=== PATIENT | female | born 1975 | race Hispanic/Latino ===

== ENCOUNTER 2018-03-13 03:56 | Emergency (ER) | payer SELFPAY ==
[2018-03-13] MEDS ORDERED: KETOROLAC 30 MG/ML INJ ONE (04:38)
[2018-03-13 05:16] LABS: Urine Blood NEGATIVE (NEG); Urine Glucose NEGATIVE (NEG); Urine Protein NEGATIVE (NEG); Urine Specific Gravity 1.015 (1.005-1.030); Urine pH 5.5 (5.0-7.0)
[2018-03-13 05:16] LABS: Urine Bacteria <20 /HPF (<20); Urine Culture Reflex Order NOT NEEDED; Urine RBC <5 /HPF (NONE SEEN)
--- NOTE | 2018-03-13 05:22 | ER ---
Nurse's Notes [facility] Name: Pily Langston Age: 42 yrs Sex: Female : 1975 Arrival Date: 03/13/2018 Time: 03:59 Bed 5 Private MD: Diagnosis: influenza like illnes Presentation: 03/13 04:06 Presenting complaint: Patient states: throat pain, headache, fever, back pain started ak1 last night. pt stated she had pneumonia and it felt like this, pt denies cough. pt c/o burning pain in throat. Transition of care: patient was not received from another setting of care. Onset of symptoms was March 12, 2018. Risk Assessment: Do you want to hurt yourself or someone else? Patient reports no desire to harm self or others. Initial Sepsis Screen: Does the patient meet any 2 criteria? No. Patient's initial sepsis screen is negative. Does the patient have a suspected source of infection? No. Patient's initial sepsis screen is negative. Care prior to arrival: motrin at 1700. 04:06 Method Of Arrival: Ambulatory ak1 04:06 Acuity: CHARLI 4 ak1 Triage Assessment: 04:08 General: Appears in no apparent distress. Behavior is calm, cooperative. Pain: ak1 Complains of pain in headache, throat pain. EENT: Reports pain when swallowing. Neuro: Level of Consciousness is awake, alert, obeys commands, Oriented to person, place, time, situation, Electrocardiograph Repairer are equal bilaterally Moves all extremities. Gait is steady, Speech is normal, Facial symmetry appears normal. Cardiovascular: No deficits noted. Respiratory: Denies cough. GI: No signs and/or symptoms were reported involving the gastrointestinal system. : No signs and/or symptoms were reported regarding the genitourinary system. Derm: Parent/caregiver reports the patient having fever last night. Musculoskeletal: Range of motion: intact in all extremities, Reports back pain. 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 - Social history:: Smoking status: Patient/guardian denies using tobacco. - Ebola Screening: : No symptoms or risks identified at this time. Screenin:10 Abuse screen: Denies threats or abuse. Denies injuries from another. Nutritional ak1 screening: No deficits noted. Tuberculosis screening: No symptoms or risk factors identified. Fall Risk None identified. Assessment: 04:10 Neuro: Level of Consciousness is awake, alert, obeys commands, Oriented to person, ak1 place, time, situation, Electrocardiograph Repairer are equal bilaterally Moves all extremities. Gait is steady, Speech is normal, Facial symmetry appears normal. 05:32 Reassessment: Patient and/or family updated on plan of care and expected duration. Pain ea level reassessed. Patient is alert, oriented x 3, equal unlabored respirations, skin warm/dry/pink. Discharge instruction given to patient, verbalized the understanding of instruction. Patient states feeling better. Vital Signs: 04:08 BP 153 / 79; Pulse 107; Resp 18; Temp 98.5(O); Pulse Ox 99% on R/A; Weight 90.72 kg ak1 (R); Height 5 ft. 6 in. (167.64 cm) (R); Pain 6/10; 04:34 BP 132 / 76; Pulse 109; Resp 18; Pulse Ox 99% on R/A; ak1 05:21 BP 127 / 58; Pulse 90; Resp 18; Pulse Ox 99% on R/A; ea 04:08 Body Mass Index 32.28 (90.72 kg, 167.64 cm) ak1 ED Course: 03:59 Patient arrived in ED. am2 04:05 Renetta Cunha, RN is Primary Nurse. ak1 04:07 Triage completed. ak1 04:08 Arm band placed on Patient placed in an exam room, on a stretcher, Patient notified of ak1 wait time. 04:10 Patient has correct armband on for positive identification. Bed in low position. Call ak1 light in reach. Side rails up X 1. Adult w/ patient. Pulse ox on. NIBP on. 04:13 Jaguar Ivy MD is Attending Physician. gs 04:35 Placed in gown. ak1 04:38 Urine Microscopic Only Sent. ds4 04:46 XRAY Chest Pa And Lat (2 Views) In Process Unspecified. EDMS 04:47 Patient moved to radiology via wheelchair. kw 04:47 X-ray completed. Patient tolerated procedure well. kw 04:[address] via wheelchair. kw 04:59 CT Head Brain wo Cont In Process Unspecified. EDMS 05:32 CT completed. Patient tolerated procedure well. Patient moved back from CT. eh 05:32 No provider procedures requiring assistance completed. Patient did not have IV access ea during this emergency room visit. Administered Medications: 04:39 Drug: TORadol 30 mg Route: IM; Site: right gluteus; ak1 05:22 Follow up: Response: Pain is decreased ea Outcome: 05:20 Discharge ordered by . gs 05:33 Discharged to home ambulatory, with family. ea 05:33 Condition: improved 05:33 Discharge instructions given to patient, Instructed on discharge instructions, follow up and referral plans. Demonstrated understanding of instructions, follow-up care. 05:33 Patient left the ED. ea Signatures: Dispatcher [employer] EDMS Neal Hooper Kimberlee kw Swanson, Donovan ds4 Renetta Cunha RN RN ak1 Moreno, Amanda am2 Antunez, Elena, RN RN ea Starr, Gregory, MD MD gs
--- NOTE | 2018-03-13 05:22 | EDPHYS ---
Physician Documentation [facility] Name: Pily Langston Age: 42 yrs Sex: Female : 1975 Arrival Date: 03/13/2018 Time: 03:59 Bed 5 Private MD: ED Physician Jaguar Ivy HPI: 03/13 05:18 This 42 yrs old Female presents to ER via Ambulatory with complaints of Fever, gs Back Pain, Headache. 05:18 Onset: The symptoms/episode began/occurred 3 day(s) ago. Modifying factors: gs Interventions used to treat fever include home remedies. Associated signs and symptoms: Pertinent positives: arthralgias, backache, cough, headache. Severity of symptoms: At their worst the symptoms were moderate in the emergency department the symptoms are unchanged. The patient has experienced similar episodes in the past, a few times. 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 - Social history:: Smoking status: Patient/guardian denies using tobacco. - Ebola Screening: : No symptoms or risks identified at this time. ROS: 05:18 All other systems are negative. gs Exam: 05:18 Head/Face: Normocephalic, atraumatic. Eyes: Pupils equal round and reactive to light, gs extra-ocular motions intact. Lids and lashes normal. Conjunctiva and sclera are non-icteric and not injected. Cornea within normal limits. Periorbital areas with no swelling, redness, or edema. ENT: Nares patent. No nasal discharge, no septal abnormalities noted. Tympanic membranes are normal and external auditory canals are clear. Oropharynx with no redness, swelling, or masses, exudates, or evidence of obstruction, uvula midline. Mucous membranes moist. Neck: Trachea midline, no thyromegaly or masses palpated, and no cervical lymphadenopathy. Supple, full range of motion without nuchal rigidity, or vertebral point tenderness. No Meningismus. Chest/axilla: Normal chest wall appearance and motion. Nontender with no deformity. No lesions are appreciated. Cardiovascular: Regular rate and rhythm with a normal S1 and S2. No gallops, murmurs, or rubs. Normal PMI, no JVD. No pulse deficits. Respiratory: Lungs have equal breath sounds bilaterally, clear to auscultation and percussion. No rales, rhonchi or wheezes noted. No increased work of breathing, no retractions or nasal flaring. Abdomen/GI: Soft, non-tender, with normal bowel sounds. No distension or tympany. No guarding or rebound. No evidence of tenderness throughout. Back: No spinal tenderness. No costovertebral tenderness. Full range of motion. Skin: Warm, dry with normal turgor. Normal color with no rashes, no lesions, and no evidence of cellulitis. MS/ Extremity: Pulses equal, no cyanosis. Neurovascular intact. Full, normal range of motion. Neuro: Awake and alert, GCS 15, oriented to person, place, time, and situation. Cranial nerves II-XII grossly intact. Motor strength 5/5 in all extremities. Sensory grossly intact. Cerebellar exam normal. Normal gait. 05:18 Constitutional: The patient appears alert, awake. Vital Signs: 04:08 BP 153 / 79; Pulse 107; Resp 18; Temp 98.5(O); Pulse Ox 99% on R/A; Weight 90.72 kg ak1 (R); Height 5 ft. 6 in. (167.64 cm) (R); Pain 6/10; 04:34 BP 132 / 76; Pulse 109; Resp 18; Pulse Ox 99% on R/A; ak1 05:21 BP 127 / 58; Pulse 90; Resp 18; Pulse Ox 99% on R/A; ea 04:08 Body Mass Index 32.28 (90.72 kg, 167.64 cm) ak1 MDM: 04:24 Patient medically screened. gs 05:18 Differential diagnosis: viral Infection, URI, bronchitis, UTI. Data reviewed: vital gs signs, nurses notes. Response to treatment: the patient's symptoms have markedly improved after treatment, and as a result, I will discharge patient. 05:21 Counseling: I had a detailed discussion with the patient and/or guardian regarding: the gs presence of at least one elevated blood pressure reading (>120/80) during this emergency department visit. Special discussion: I have referred the patient to see his PCP for further evaluation of high blood pressure. 03/13 04:26 Order name: Urine Microscopic Only; Complete Time: 05:17 03/13 04:39 Order name: Urine Dipstick--Ancillary (enter results); Complete Time: 05:17 ds4 03/13 04:26 Order name: XRAY Chest Pa And Lat (2 Views) 03/13 04:26 Order name: CT Head Brain wo Cont 03/13 04:39 Order name: Urine --Ancillary (enter results); Complete Time: 05:17 ds4 03/13 04:26 Order name: Urine Test (obtain specimen); Complete Time: 04:33 03/13 04:26 Order name: Urine Dipstick-Ancillary (obtain specimen); Complete Time: 04:33 Administered Medications: 04:39 Drug: TORadol 30 mg Route: IM; Site: right gluteus; ak1 05:22 Follow up: Response: Pain is decreased ea Disposition: 03/13/18 05:20 Discharged to Home. Impression: influenza like illnes. - Condition is Stable. - Discharge Instructions: Fever, Adult, [id number], Managing Your Hypertension. - Medication Reconciliation Form, Thank You Letter, Antibiotic Education, Prescription Opioid Use form. - Follow up: Private Physician; When: 2 - 3 days; Reason: Re-evaluation by your physician. Signatures: Dispatcher [employer] Renetta Woods RN RN ak1 Dee Bower RN RN ea Starr, Gregory, MD MD Corrections: (The following items were deleted from the chart) 05:33 05:20 03/13/2018 05:20 Discharged to Home. Impression: influenza like illnes. Condition ea is Stable. Forms are Medication Reconciliation Form, Thank You Letter, Antibiotic Education, Prescription Opioid Use. Follow up: Private Physician; When: 2 - 3 days; Reason: Re-evaluation by your physician.
--- NOTE | 2018-03-13 08:49 | RAD REPORT ---
EXAM DESCRIPTION: CT - Head Brain Wo Cont - 03/13/2018 5:42 am CLINICAL HISTORY: Headache COMPARISON: None. TECHNIQUE: Computed axial tomography of the head was obtained. IV contrast was not requested. All CT scans are performed using dose optimization technique as appropriate and may include automated exposure control or mA/KV adjustment according to patient size. FINDINGS: An intracranial bleed is not seen . The ventricles are normal in caliber. No extra-axial fluid collection is noted. Fluid within the sinuses/ mastoids is not seen. IMPRESSION: No acute intracranial abnormality is seen. If patient's symptoms persist MRI of the bra in would be recommended.
--- NOTE | 2018-03-13 09:15 | RAD REPORT ---
EXAM DESCRIPTION: Wendy Carroll (2 Views)03/13/2018 4:50 am CLINICAL HISTORY: Cough COMPARISON: 2017 FINDINGS: The lungs appear clear of acute infiltrate. The heart is normal size IMPRESSION: No acute abnormalities displayed
== END 2018-03-13 05:33 | disposition home or self-care (01) ==
LOC: ER 03:56
DX: B34.8 Other viral infections of unspecified site (principal)
CPT/HCPCS: 70450; 71046; 81003; 81015; 81025; 96372; 99284

== ENCOUNTER 2019-06-09 18:54 | Emergency (ER) | payer SELFPAY ==
[2019-06-09 19:53] LABS: Urine Bacteria 20-50 /HPF (<20); Urine Culture Reflex Order NOT NEEDED; Urine RBC <5 /HPF (NONE SEEN)
[2019-06-09 19:56] LABS: Basophils % 0.3 % (0-1.3); Hematocrit 38.8 % (36.0-45.0); MPV 10.1 fL (7.6-11.3); RBC Red Blood Cell Count 4.45 M/uL (3.86-4.86)
--- NOTE | 2019-06-09 20:03 | RAD REPORT ---
EXAM DESCRIPTION: Wendy Carroll (2 Views)06/09/2019 7:43 pm CLINICAL HISTORY: Chest pain COMPARISON: 2018 FINDINGS: The lungs appear clear of acute infiltrate. The heart is normal size IMPRESSION: No acute abnormalities displayed
[2019-06-09 20:09] LABS: Albumin 3.6 g/dL (3.4-5.0); Bilirubin Direct 0.1 mg/dL (0-0.2); Bilirubin Total 0.4 mg/dL (0.2-1.0); Potassium 3.4 mmol/L (3.5-5.1); Protein, Total 7.4 g/dL (6.4-8.2)
[2019-06-09 20:25] LABS: Urine Blood NEGATIVE (NEG); Urine Glucose NEGATIVE (NEG); Urine Protein NEGATIVE (NEG); Urine Specific Gravity >1.030 (1.005-1.030); Urine pH 5.5 (5.0-7.0)
--- NOTE | 2019-06-09 20:50 | RAD REPORT ---
EXAM DESCRIPTION: CT - Abdomen Pelvis W Contrast - 06/09/2019 8:25 pm CLINICAL HISTORY: Abdominal pain COMPARISON: none. TECHNIQUE: Computed axial tomography of the abdomen pelvis was obtained. 100 cc Isovue-300 was admin istered intravenously. Oral contrast was not requested which limits evaluation of bowel. All CT scans are performed using dose optimization technique as appropriate and may include automated exposure control or mA/KV adjustment according to patient size. FINDINGS: The liver, spleen, pancreas, adrenal and kidneys appear unremarkable. There is no evidence of diverticulitis. Normal appendix 3.1 centimeter right ovarian cyst with small amount of free fluid IMPRESSION: 3.1 centimeter right ovarian cyst with small amount of free fluid
--- NOTE | 2019-06-09 21:27 | EDPHYS ---
Physician Documentation [facility] Name: Pily Langston Age: 44 yrs Sex: Female : 1975 Arrival Date: 06/09/2019 Time: 18:55 Bed 19 Private MD: ED Physician Augie Beaver HPI: 06/09 19:28 This 44 yrs old Female presents to ER via Ambulatory with complaints of Fever, rn Abdominal Pain, Back Pain. 19:28 The patient reports fever, not measured (subjective). Onset: The symptoms/episode rn began/occurred this morning. Modifying factors: there are no obvious modifying factors. Severity of symptoms: At their worst the symptoms were mild in the emergency department the symptoms are unchanged. The patient has experienced a previous episode. Reports fever, mid to upper back pain on right side, also having upper abd pain, + nausea, no diarrhea. NO sore throat or runny nose. NO urinary symptoms. . 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 - Coronavirus screen:: The patient has NOT traveled to [place] in the past 14 days. - Social history:: Smoking status: Patient denies any tobacco usage or history of. - Family history:: not pertinent. - Ebola Screening: : No symptoms or risks identified at this time. - Hospitalizations: : No recent hospitalization is reported. 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 Exam: 19:28 Constitutional: This is a well developed, well nourished patient who is awake, alert, rn and in no acute distress. Ambulatory to room from bathroom without assistance Head/Face: Normocephalic, atraumatic. Eyes: Pupils equal round and reactive to light, extra-ocular motions intact. Lids and lashes normal. Conjunctiva and sclera are non-icteric and not injected. Cornea within normal limits. Periorbital areas with no swelling, redness, or edema. ENT: MMM, no stridor Neck: Supple, full range of motion without nuchal rigidity, or vertebral point tenderness. No Meningismus. Cardiovascular: Regular rate and rhythm. No pulse deficits. Respiratory: Lungs have equal breath sounds bilaterally, clear to auscultation. No increased work of breathing, no retractions or nasal flaring. Abdomen/GI: soft, + epigastric and LUQ tenderness, no rebound Back: No spinal tenderness. No costovertebral tenderness. Full range of motion. Skin: Warm, dry MS/ Extremity: Pulses equal, no cyanosis. Neurovascular intact. Full, normal range of motion. Equal circumference. Neuro: Awake and alert, GCS 15, oriented to person, place, time, and situation. Cranial nerves II-XII grossly intact. Motor strength 5/5 in all extremities. Sensory grossly intact. Cerebellar exam normal. Normal gait. Vital Signs: 19:05 BP 131 / 79; Pulse 93; Resp 11; Temp 98.6; Pulse Ox 99% on R/A; Weight 97.52 kg; Height ea 5 ft. 6 in. (167.64 cm); Pain 7/10; 20:30 BP 121 / 70; Pulse 80; Resp 18; Pulse Ox 100% on R/A; wh 21:30 BP 114 / 95; Pulse 88; Resp 18; Pulse Ox 99% on R/A; wh 19:05 Body Mass Index 34.70 (97.52 kg, 167.64 cm) ea MDM: 19:11 Patient medically screened. rn 21:24 Differential diagnosis: viral Infection, bacterial infection, URI, pneumonia UTI, rn gastroenteritis. Data reviewed: vital signs, nurses notes, lab test result(s), radiologic studies, CT scan, plain films, and as a result, I will discharge patient. Counseling: I had a detailed discussion with the patient and/or guardian regarding: the historical points, exam findings, and any diagnostic results supporting the discharge/admit diagnosis, lab results, radiology results, the need for outpatient follow up, to return to the emergency department if symptoms worsen or persist or if there are any questions or concerns that arise at home. Special discussion: Based on the patient's Hx, exam, and Dx evaluation, there is no indication for emergent surgery or inpatient Tx. It is understood by the patient/guardian that if the Sx's persist or worsen they need to return immediately for re-evaluation. I discussed with the patient/guardian in detail that at this point there is no indication for admission to the hospital. It is understood, however, that if the symptoms persist or worsen the patient needs to return immediately for re-evaluation. ED course: No acute findings other than ovarian cyst, no sign of rupture, neg cxr, no bowel infection, neg UA, neg flu. Will dc home with fever and viral syndrome. . 06/09 19:10 Order name: Urine Culture [facility] 06/09 19:10 Order name: Urine Microscopic Only; Complete Time: 20:43 [facility] 06/09 19:26 Order name: Flu; Complete Time: 20:43 06/09 19:26 Order name: Strep; Complete Time: 20:43 06/09 19:26 Order name: Basic Metabolic Panel; Complete Time: 20:43 06/09 19:26 Order name: CBC with Diff; Complete Time: 20:43 06/09 19:26 Order name: XRAY Chest Pa And Lat (2 Views); Complete Time: 20:43 06/09 19:26 Order name: Creatinine for Radiology; Complete Time: 20:43 06/09 19:26 Order name: Hepatic Function; Complete Time: 20:43 06/09 19:26 Order name: Lipase; Complete Time: 20:43 06/09 19:26 Order name: CT Abd/Pelvis - IV Contrast Only; Complete Time: 20:56 06/09 19:30 Order name: Urine Dipstick--Ancillary (enter results); Complete Time: 20:43 [facility] 06/09 19:30 Order name: Urine --Ancillary (enter results); Complete Time: 20:43 [facility] 06/09 20:07 Order name: Throat Culture [facility] 06/09 19:10 Order name: Urine Test (obtain specimen); Complete Time: 19:26 [facility] 06/09 19:10 Order name: Urine Dipstick-Ancillary (obtain specimen); Complete Time: snw 06/09 19: Order name: IV Saline Lock; Complete Time: 19:37 rn 06/09 19: Order name: Labs collected and sent; Complete Time: 19:37 rn Administered Medications: No medications were administered Disposition: 06/09/19 21:26 Discharged to Home. Impression: Fever, unspecified, Unspecified abdominal pain. - Condition is Stable. - Discharge Instructions: Abdominal Pain, Adult, Fever, Adult. - Medication Reconciliation Form, Thank You Letter, Antibiotic Education, Prescription Opioid Use form. - Follow up: Private Physician; When: As needed; Reason: Recheck today's complaints, Re-evaluation by your physician. - Problem is new. - Symptoms have improved. Signatures: Dispatcher [employer] EDMS Sayra Huston, BEHAVIOR SUPPORT SPECIALIST-C BEHAVIOR SUPPORT SPECIALIST-Csnw Augie Beaver MD MD rn Antunez, Elena, RN RN ea Habalo, Winsy wh Corrections: (The following items were deleted from the chart) 21:44 21:06/09/2019 21:26 Discharged to Home. Impression: Fever, unspecified; Unspecified wh abdominal pain. Condition is Stable. Forms are Medication Reconciliation Form, Thank You Letter, Antibiotic Education, Prescription Opioid Use. Follow up: Private Physician; When: As needed; Reason: Recheck today's complaints, Re-evaluation by your physician. Problem is new. Symptoms have improved. rn
--- NOTE | 2019-06-09 21:27 | ER ---
Nurse's Notes [facility] Name: Pily Langston Age: 44 yrs Sex: Female : 1975 Arrival Date: 06/09/2019 Time: 18:55 Bed 19 Private MD: Diagnosis: Fever, unspecified;Unspecified abdominal pain Presentation: 06/09 19:02 Presenting complaint: Patient states: Reports she has been having back pain, stomach ea pain, fever reports she is feeling the same as last year when she had pneumonia. Transition of care: patient was not received from another setting of care. Onset of symptoms was June 09, 2019. Risk Assessment: Do you want to hurt yourself or someone else? Patient reports no desire to harm self or others. Initial Sepsis Screen: Does the patient meet any 2 criteria? No. Patient's initial sepsis screen is negative. Does the patient have a suspected source of infection? No. Patient's initial sepsis screen is negative. Care prior to arrival: None. 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 - Coronavirus screen:: The patient has NOT traveled to [place] in the past 14 days. - Social history:: Smoking status: Patient denies any tobacco usage or history of. - Family history:: not pertinent. - Ebola Screening: : No symptoms or risks identified at this time. - Hospitalizations: : No recent hospitalization is reported. Screenin:06 Abuse screen: Denies threats or abuse. Nutritional screening: No deficits noted. ea Tuberculosis screening: No symptoms or risk factors identified. Fall Risk None identified. Assessment: 19:20 General: Appears in no apparent distress. Behavior is calm, cooperative, appropriate wh for age. Pain: Complains of pain in abdomen diffusely Pain does not radiate. Pain currently is 4 out of 10 on a pain scale. Pain began 2-3 days ago. Neuro: Level of Consciousness is awake, alert, obeys commands, Oriented to person, place, time, situation, Appropriate for age. Cardiovascular: Heart tones S1 S2. Respiratory: Airway is patent Respiratory effort is even, unlabored, Respiratory pattern is regular, symmetrical, Breath sounds are clear bilaterally. GI: Abdomen is flat, non-distended, Bowel sounds present X 4 quads. Abd is soft and non tender X 4 quads. GI: Reports lower abdominal pain, upper abdominal pain. : No signs and/or symptoms were reported regarding the genitourinary system. EENT: No signs and/or symptoms were reported regarding the EENT system. Derm: Skin is intact, is healthy with good turgor, Skin is pink, warm \T\ dry. normal. Musculoskeletal: Circulation, motion, and sensation intact. 20:20 Reassessment: Patient appears in no apparent distress at this time. No changes from previously documented assessment. Patient and/or family updated on plan of care and expected duration. Pain level reassessed. Patient is alert, oriented x 3, equal unlabored respirations, skin warm/dry/pink. 21:30 Reassessment: Patient appears in no apparent distress at this time. No changes from previously documented assessment. Patient and/or family updated on plan of care and expected duration. Pain level reassessed. Patient is alert, oriented x 3, equal unlabored respirations, skin warm/dry/pink. Vital Signs: 19:05 BP 131 / 79; Pulse 93; Resp 11; Temp 98.6; Pulse Ox 99% on R/A; Weight 97.52 kg; Height ea 5 ft. 6 in. (167.64 cm); Pain 7/10; 20:30 BP 121 / 70; Pulse 80; Resp 18; Pulse Ox 100% on R/A; wh 21:30 BP 114 / 95; Pulse 88; Resp 18; Pulse Ox 99% on R/A; wh 19:05 Body Mass Index 34.70 (97.52 kg, 167.64 cm) ED Course: 18:55 Patient arrived in ED. as 19:05 Triage completed. ea 19:11 Augie Beaver MD is Attending Physician. rn 19:12 Mariah Armendariz is Primary Nurse. 19:30 Inserted saline lock: 20 gauge in right antecubital area, using aseptic technique. Blood collected. By Pam PADILLA. 19:30 Arm band placed on right wrist. 19:30 Patient has correct armband on for positive identification. Bed in low position. Call light in reach. Side rails up X 1. Pulse ox on. NIBP on. 19:41 XRAY Chest Pa And Lat (2 Views) In Process Unspecified. EDMS 20:26 CT Abd/Pelvis - IV Contrast Only In Process Unspecified. EDMS 21:39 IV discontinued, intact, bleeding controlled, No redness/swelling at site. 21:40 No provider procedures requiring assistance completed. Administered Medications: No medications were administered Outcome: 21:26 Discharge ordered by . rn 21:38 Discharged to home ambulatory, with family. 21:38 Condition: stable 21:38 Discharge instructions given to patient, family, Instructed on discharge instructions, follow up and referral plans. POC Demonstrated understanding of instructions, follow-up care, medications, POC 21:44 Patient left the ED. Addendum: 06/13/2019 18:41 Addendum: Culture Results: Positive urine culture. Patient was not prescribed i w antibiotics at discharge. Report given to UBALDO for further evaluation and then to carnival worker for follow up with patient. Phone call Attempt #1 pt did not answer, unable to leave . Signatures: Dispatcher [employer] Sindhu Moore Irene, RN RN iw Nieto, Roman, MD MD rn Antunez, Elena, RN RN ea Habalo, Winsy
[2019-06-09 21:52] VITALS: TEMP 98.6
[2019-06-09 21:55] VITALS: BP 114/95; O2SAT 99
== END 2019-06-09 21:44 | disposition home or self-care (01) ==
LOC: ER 18:54
DX: R10.9 Unspecified abdominal pain (principal); E03.9 Hypothyroidism, unspecified
CPT/HCPCS: 36415; 71046; 74177; 80048; 80076; 81003; 81015; 81025; 83690; 85025; 87070; 87077; 87081; 87086; 87088; 87186; 87804; 99284; Q9967

== ENCOUNTER 2023-01-14 00:02 | Emergency (ER) | payer SELFPAY ==
[2023-01-14] MEDS ORDERED: ONDANSETRON 4 MG/2 ML VIAL ONE (00:45)
[2023-01-14] MEDS ORDERED: NA CHLORIDE 0.9% 1,000 ML ONE (00:45)
[2023-01-14] MEDS ORDERED: KETOROLAC 30 MG/ML INJ ONE (00:45)
[2023-01-14 00:54] LABS: Absolute Lymphocytes (CBC) 0.5 K/uL (0.7-4.9); Hematocrit 35.9 % (36.0-45.0); Lymphocytes % 6.8 % (15.3-44.8); MCV 89.3 fL (80-100); Platelets 134 thou/uL (152-406); RBC Red Blood Cell Count 4.02 M/uL (3.86-4.86)
[2023-01-14 01:13] LABS: Albumin 3.4 g/dL (3.4-5.0); Bilirubin Total 0.5 mg/dL (0.2-1.0); Potassium 3.8 mEq/L (3.5-5.1); Protein, Total 6.8 g/dL (6.4-8.2)
[2023-01-14 01:30] LABS: Blood Morphology Comment NOT SEEN (NOT SEEN); Platelet Estimate ADEQ
[2023-01-14 02:36] LABS: Specific Gravity 1.007 (1.005-1.030); Urine Bilirubin NEGATIVE (Negative); Urine Blood Negative (Negative); Urine Clarity Clear (Clear); Urine Color Colorless (Yellow); Urine Glucose NEGATIVE (Negative); Urine Protein NEGATIVE (Negative); Urine Urobilinogen Normal (Normal)
--- NOTE | 2023-01-14 02:46 | ER ---
Nurse's Notes [facility] Name: Pily Langston Age: 47 yrs Sex: Female : 1975 Arrival Date: 01/14/2023 Time: 00:02 Bed 5 Private MD: Diagnosis: enteritis Presentation: 01/14 00:10 Chief complaint: Patient states: mid abdominal pain radiating to right abdomen with lg3 indigestion and nausea since yesterday morning. Coronavirus screen: Client denies travel out of the [place] in the last 14 days. At this time, the client does not indicate any symptoms associated with coronavirus-19. Ebola Screen: No symptoms or risks identified at this time. Initial Sepsis Screen: Does the patient meet any 2 criteria? No. Patient's initial sepsis screen is negative. Does the patient have a suspected source of infection? No. Patient's initial sepsis screen is negative. Risk Assessment: Do you want to hurt yourself or someone else? Patient reports no desire to harm self or others. Onset of symptoms was January 12, 2023. 00:10 Method Of Arrival: Ambulatory lg3 00:10 Acuity: CHARLI 3 lg3 Triage Assessment: 00:13 General: Appears in no apparent distress. uncomfortable, Behavior is calm, cooperative. lg3 Pain: Complains of pain in epigastric area, right upper quadrant and right lower quadrant. EENT: No deficits noted. No signs and/or symptoms were reported regarding the EENT system. Neuro: No deficits noted. Chan Agitation-Sedation Scale (RASS): 0 - Alert and Calm Level of Consciousness is awake, alert, obeys commands, Oriented to person, place, time, situation. Cardiovascular: No deficits noted. Denies chest pain, shortness of breath, Capillary refill < 3 seconds Clubbing of nail beds is absent JVD is absent Patient's skin is warm and dry. Respiratory: No deficits noted. Airway is patent Respiratory effort is even, unlabored, Respiratory pattern is regular, symmetrical. GI: Abdomen is round non-distended, Abd is soft X 4 quads Abdomen is tender to palpation in right upper quadrant and right lower quadrant Reports lower abdominal pain, upper abdominal pain, cramping, epigastric pain, indigestion, nausea. : No deficits noted. No signs and/or symptoms were reported regarding the genitourinary system. Derm: No deficits noted. No signs and/or symptoms reported regarding the dermatologic system. Skin is intact, is healthy with good turgor, Skin is dry, Skin is normal, Skin temperature is warm. Musculoskeletal: No deficits noted. No signs and/or symptoms reported regarding the musculoskeletal system. Circulation, motion, and sensation intact. Range of motion: intact in all extremities. DIRECTOR OF CLOUD SERVICES: 00:13 LMP N/A - Hysterectomy, Not lg3 Historical: - Allergies: 00:13 No Known Allergies; lg3 - PMHx: 00:13 Hypothyroidism; lg3 - PSHx: 00:13 Total abdominal hysterectomy; lg3 - Immunization history:: Adult Immunizations up to date. - Social history:: Smoking status: Patient denies any tobacco usage or history of. Patient/guardian denies using alcohol, street drugs. Screenin:43 Abuse screen: Denies threats or abuse. Denies injuries from another. Nutritional ha1 screening: No deficits noted. 03:02 [facility] ED Fall Risk Assessment (Adult) History of falling in the last 3 months, jb4 including since admission. Tuberculosis screening: No symptoms or risk factors identified. Assessment: 00:15 General: Appears uncomfortable, Behavior is calm, cooperative. Pain: Complains of pain ha1 in abdomen and right upper quadrant Pain does not radiate. Pain currently is 9 out of 10 on a pain scale. Quality of pain is described as crampy, pressure, Pain began 1 day ago. Neuro: Level of Consciousness is awake, alert, obeys commands, Oriented to person, place, time, situation. Cardiovascular: Capillary refill < 3 seconds Patient's skin is warm and dry. Respiratory: Airway is patent Respiratory effort is even, unlabored, Respiratory pattern is regular, symmetrical. GI: Abdomen is round non-distended, Reports upper abdominal pain, nausea. Derm: Skin is pink, warm \T\ dry. Musculoskeletal: Circulation, motion, and sensation intact. Range of motion: intact in all extremities. 01:40 Reassessment: Patient appears in no apparent distress at this time. Patient and/or jb4 family updated on plan of care and expected duration. Pain level reassessed. Patient is alert, oriented x 3, equal unlabored respirations, skin warm/dry/pink. 03:02 Reassessment: Patient appears in no apparent distress at this time. Patient and/or jb4 family updated on plan of care and expected duration. Pain level reassessed. Patient is alert, oriented x 3, equal unlabored respirations, skin warm/dry/pink. Vital Signs: 00:10 BP 126 / 80; Pulse 114; Resp 17 S; Temp 98.7(O); Pulse Ox 100% on R/A; Weight 70.76 kg lg3 (R); Height 5 ft. 3 in. (R); Pain 9/10; 00:42 BP 130 / 82; Pulse 95; Resp 18 S; Pulse Ox 100% on R/A; ha1 01:40 BP 105 / 55; Pulse 101; Resp 16; Pulse Ox 95% on R/A; jb4 00:10 Body Mass Index 27.63 (70.76 kg, 160.02 cm) lg3 00:10 Pain Scale: Adult lg3 ED Course: 00:07 Patient arrived in ED. jj6 00:07 [facility] Sandoval [facility]C [facility] kb 00:07 Louie Mora MD is Attending Physician. kb 00:13 Triage completed. lg3 00:13 Arm band placed on right wrist. lg3 00:35 Initial lab(s) drawn, by me, sent to lab. Inserted saline lock: 18 gauge in right jb4 antecubital area, using aseptic technique. Blood collected. 01:39 CT Abd/Pelvis - IV Contrast Only In Process Unspecified. EDMS 01:39 Burak Galo, RN is Primary Nurse. jb4 03:02 Patient has correct armband on for positive identification. Bed in low position. Call jb4 light in reach. Side rails up X 1. Client placed on continuous cardiac and pulse oximetry monitoring. NIBP monitoring applied. 03:02 No provider procedures requiring assistance completed. IV discontinued, intact, jb4 bleeding controlled, No redness/swelling at site. Pressure dressing applied. Administered Medications: 00:50 Drug: NS 0.9% IV 1000 ml IV at 1 bolus Per protocol; 1000 mL bolus Route: IV; Rate: 1 jb4 bolus; Site: right antecubital; 00:50 Drug: TORadol - Ketorolac IVP 15 mg IVP once Route: IVP; Site: right antecubital; jb4 00:50 Drug: Ondansetron IVP 4 mg IVP once; over 2 minutes Route: IVP; Site: right antecubital;jb4 Outcome: 02:46 Discharge ordered by MD. cobb 03:02 Discharged to home ambulatory, with family, jb4 03:02 Condition: stable 03:02 Discharge instructions given to patient, Instructed on discharge instructions, follow up and referral plans. medication usage, Demonstrated understanding of instructions, follow-up care, medications, Prescriptions given X 2, 03:04 Patient left the ED. jb4 Signatures: Dispatcher [employer] EDMS Laurie Sandoval, FINANCE BROKER-C FINANCE BROKER-Burak Tipton, RN RN jb4 Sugar Romo, RN RN lg3 Naina Dhillon jj6 Lucinda Mota, RN RN ha1
--- NOTE | 2023-01-14 02:46 | EDPHYS ---
Physician Documentation [facility] Name: Pily Langston Age: 47 yrs Sex: Female : 1975 Arrival Date: 01/14/2023 Time: 00:02 Bed 5 Private MD: ED Physician Louie Mora HPI: 01/14 01:15 This 47 yrs old Female presents to ER via Ambulatory with complaints of kb Abdominal Pain. 01:15 The patient presents with abdominal pain in the upper abdomen. Onset: The kb symptoms/episode began/occurred yesterday. The symptoms do not radiate. Associated signs and symptoms: Pertinent positives: nausea, chills. The symptoms are described as constant. Modifying factors: The symptoms are alleviated by nothing, the symptoms are aggravated by nothing. Severity of pain: At its worst the pain was mild moderate in the emergency department the pain is unchanged. The patient has not experienced similar symptoms in the past. The patient has not recently seen a physician. Pt reports abd pain, nausea and chills that started yesterday. Denies vomiting, diarrhea. 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 - Social history:: Smoking status: Patient denies any tobacco usage or history of. Patient/guardian denies using alcohol, street drugs. ROS: 01:15 Respiratory: Negative for shortness of breath, cough, wheezing, and pleuritic chest kb pain, 01:15 Constitutional: Positive for chills, 01:15 Abdomen/GI: Positive for abdominal pain, nausea, 01:15 All other systems are negative, Exam: 01:17 Constitutional: This is a well developed, well nourished patient who is awake, alert, kb and in no acute distress. Head/Face: Normocephalic, atraumatic. ENT: Moist Mucous membranes Cardiovascular: Regular rate Respiratory: Respirations even and unlabored. No increased work of breathing. Talking in full sentences Skin: Warm, dry with normal turgor. Normal color. MS/ Extremity: Pulses equal, no cyanosis. Neurovascular intact. Full, normal range of motion. Neuro: Awake and alert, GCS 15, oriented to person, place, time, and situation. Moves all extremities. Normal gait. 01:17 Abdomen/GI: Inspection: abdomen appears normal, Bowel sounds: normal, Palpation: soft, in all quadrants, mild abdominal tenderness, in the right upper quadrant and left upper quadrant, moderate abdominal tenderness, in the right lower quadrant, Vital Signs: 00:10 BP 126 / 80; Pulse 114; Resp 17 S; Temp 98.7(O); Pulse Ox 100% on R/A; Weight 70.76 kg lg3 (R); Height 5 ft. 3 in. (R); Pain 9/10; 00:42 BP 130 / 82; Pulse 95; Resp 18 S; Pulse Ox 100% on R/A; ha1 01:40 BP 105 / 55; Pulse 101; Resp 16; Pulse Ox 95% on R/A; jb4 00:10 Body Mass Index 27.63 (70.76 kg, 160.02 cm) lg3 00:10 Pain Scale: Adult lg3 MDM: 00:08 Patient medically screened. 01:17 Differential diagnosis: appendicitis, cholecystitis, Cholelithiasis, non-specific abd kb pain, pancreatitis, urinary tract infection. Data reviewed: vital signs, nurses notes. 02:28 Counseling: I had a detailed discussion with the patient and/or guardian regarding the historical points, exam findings, and any diagnostic results supporting the discharge/admit diagnosis, lab results, radiology results, the need for outpatient follow up, a family practitioner, to return to the emergency department if symptoms worsen or persist or if there are any questions or concerns that arise at home. 02:45 I considered the following discharge prescriptions or medication management in the emergency department I discussed and recommended Over The Counter medications, Antibiotics: At this time antibiotics are not recommended. Historians other than the Patient: Daughter/Son: daughter. 01/14 00:19 Order name: CBC with Diff; Complete Time: kb 01/14 00:19 Order name: CMP; Complete Time: kb 01/14 00:19 Order name: Lipase; Complete Time: : kb 01/14 00:19 Order name: Urinalysis w/ reflexes kb 01/14 01:02 Order name: Manual Differential; Complete Time: EDMS 01/14 00:19 Order name: CT Abd/Pelvis - IV Contrast Only kb 01/14 00:19 Order name: IV Saline Lock; Complete Time: 00:50 kb 01/14 00:19 Order name: Labs collected and sent; Complete Time: 00:50 kb Administered Medications: 00:50 Drug: NS 0.9% IV 1000 ml IV at 1 bolus Per protocol; 1000 mL bolus Route: IV; Rate: 1 jb4 bolus; Site: right antecubital; 00:50 Drug: TORadol - Ketorolac IVP 15 mg IVP once Route: IVP; Site: right antecubital; jb4 00:50 Drug: Ondansetron IVP 4 mg IVP once; over 2 minutes Route: IVP; Site: right antecubital;jb4 Disposition Summary: 01/14/23 02:46 Discharge Ordered Notes: Location: Home kb Condition: Stable kb Diagnosis - enteritis kb Followup: kb - With: Emergency Department - When: As needed - Reason: Worsening of condition Followup: kb - With: Private Physician - When: 2 - 3 days - Reason: Recheck today's complaints, Continuance of care, Re-evaluation by your physician Discharge Instructions: - Discharge Summary Sheet kb - Viral Gastroenteritis, Adult, [id number] kb Forms: - Medication Reconciliation Form kb - Thank You Letter kb - Antibiotic Education kb - Prescription Opioid Use kb - Patient Portal Instructions kb - Leadership Thank You Letter kb Prescriptions: - ondansetron 4 mg Oral Tablet,disintegrating - take 1 tablet ORAL route every 6 hours As needed; 10 tablet; Refills: 0, kb Product Selection Permitted - dicyclomine 20 mg Oral tablet - take 1 tablet ORAL route 4 times per day As needed; 20 tablet; Refills: 0, kb Product Selection Permitted Signatures: Dispatcher [employer] Laurie Sprague, MELIZA BARTH-Burak Tipton, RN RN jb4 Sugar Romo, RN RN lg3
[2023-01-14 03:29] VITALS: TEMP 98.7
[2023-01-14 03:31] VITALS: BP 105/55; O2SAT 95
--- NOTE | 2023-01-14 18:34 | RAD REPORT ---
EXAM DESCRIPTION: CT - Abdomen Pelvis W Contrast - 01/14/2023 6:47 am CLINICAL HISTORY: The patient is 47 years old and is Female; ABD PAIN TECHNIQUE: Axial computed tomography images of the abdomen and pelvis with intravenous contrast. S agittal and coronal reformatted images were created and reviewed. This CT exam was performed using one or more of the following dose reduction techniques: automated exposure control, adjustment of t he mA and/or kV according to patient size, and/or use of iterative reconstruction technique. COMPARISON: No relevant prior studies available. FINDINGS: Lung bases: Unremarkable. No mass. No consolidation. ABDOMEN: Liver: Unremarkable. No mass. Gallbladder and bile ducts: Unremarkable. No calcified stones. No ductal dilation. Pancreas: Unremarkable. No mass. No ductal dilation. Spleen: Unremarkable. No splenomegaly. Adrenals: Unremarkable. No mass. Kidneys and ureters: Unremarkable. No solid mass. No hydronephrosis. Stomach and bowel: Mildly prominent small bowel in the midabdomen. Scattered colonic diverticula. No obstruction. No mucosal thickening. PELVIS: Appendix: No findings to suggest acute appendicitis. Bladder: Mild diffuse bladder wall thickening. Reproductive: Uterus is not seen. ABDOMEN and PELVIS: Intraperitoneal space: Unremarkable. No free air. No significant fluid collection. Bones/joints: No acute fracture. No dislocation. Soft tissues: Unremarkable. Vasculature: Unremarkable. No abdominal aortic aneurysm. Lymph nodes: Unremarkable. No enlarged lymph nodes. IMPRESSION: 1. Mildly prominent small bowel in the mid abdomen. Correlate with any concern for m ild enteritis. 2. Mild diffuse bladder wall thickening. Correlate with any concern for cystitis. Electronically signed by: Reed Navarro MD 01/14/2023 2:02 AM CDT Due to temporary technical issues with the PACS/Fluency reporting system, reports are being signed by the in house radiologists without review as a courtesy to insure prompt reporting. The interpreting radiologist is fully responsible for the content of the report
== END 2023-01-14 03:04 | disposition home or self-care (01) ==
LOC: ER 00:02
DX: K52.9 Noninfective gastroenteritis and colitis, unspecified (principal)
CPT/HCPCS: 36415; 74177; 80053; 81003; 83690; 85025; 96374; 96375; 99284; J2405; J7030; Q9967